=== PATIENT | female | born 1995 ===

== ENCOUNTER 2024-07-26 14:32 | Outpatient (CLI) | payer OTHER | END 2024-07-26 14:33 | disposition home or self-care (01) | LOC: PRENATAL 14:32 | PROVIDERS: ATTEND Obstetrics & Gynecology Maternal & Fetal Medicine | DX: O36.8199 Decreased fetal movements, unspecified trimester, other fetus (principal); Z36.82 Encounter for antenatal screening for nuchal translucency; O99.280 Endocrine, nutritional and metabolic diseases complicating pregnancy, unspecified trimester; Z14.8 Genetic carrier of other disease; Z3A.13 13 weeks gestation of pregnancy ==

== ENCOUNTER → 2024-09-15 | Outpatient (CLI) | payer OTHER | END | disposition home or self-care (01) | LOC: PRENATAL 08:33 | PROVIDERS: ATTEND Obstetrics & Gynecology Maternal & Fetal Medicine | DX: O44.00 Complete placenta previa NOS or without hemorrhage, unspecified trimester (principal); O99.280 Endocrine, nutritional and metabolic diseases complicating pregnancy, unspecified trimester; Z3A.20 20 weeks gestation of pregnancy ==

== ENCOUNTER 2024-11-11 14:23 | Outpatient (CLI) | payer OTHER | END 2024-11-11 14:24 | disposition home or self-care (01) | LOC: PRENATAL 14:23 | PROVIDERS: ATTEND Obstetrics & Gynecology Maternal & Fetal Medicine | DX: O26.849 Uterine size-date discrepancy, unspecified trimester (principal); O44.00 Complete placenta previa NOS or without hemorrhage, unspecified trimester; O99.280 Endocrine, nutritional and metabolic diseases complicating pregnancy, unspecified trimester; Z3A.29 29 weeks gestation of pregnancy ==

== ENCOUNTER → 2024-12-21 09:20 | Outpatient (CLI) | payer OTHER | END | disposition home or self-care (01) | LOC: PRENATAL 09:20 | PROVIDERS: ATTEND Obstetrics & Gynecology Maternal & Fetal Medicine | DX: O26.849 Uterine size-date discrepancy, unspecified trimester (principal); O36.8199 Decreased fetal movements, unspecified trimester, other fetus; O99.280 Endocrine, nutritional and metabolic diseases complicating pregnancy, unspecified trimester; Z3A.34 34 weeks gestation of pregnancy ==

== ENCOUNTER 2025-01-18 13:04 | Inpatient (IN) | payer OTHER ==
[~2025-01-18] VITALS: Ht 162.6 cm; Wt 79.4 kg
[2025-01-18 13:51] LABS: BASO % 0.2 % (0.1-1.2); EOS # 0.05 (0.04-0.54); EOS % 0.8 % (0.7-7.0); LYMPH # 1.27 (1.18-3.74); LYMPH % 19.7 % (19.3-53.1); MEAN PLATELET VOLUME 14.20 fl (9.4-12.4); MONO # 0.50 (0.24-0.82); MONO % 7.8 % (4.7-12.5); NEUT # 4.59 (1.56-6.13); NEUT % 71.2 % (34.0-71.1); RED CELL DISTRIBUTION WIDTH 13.8 % (11.6-14.4)
[2025-01-18] MEDS ORDERED: SYNTHROID50 MCG PO (13:54)
[2025-01-18] MEDS ORDERED: PRENATABS RX T1 EACH PO (13:55)
[2025-01-18 13:59] LABS: URINE APPEARANCE Clear; URINE BILIRRUBIN Negative (NEGATIVE); URINE BLOOD Negative; URINE COLOR Dark Yellow; URINE GLUCOSE Negative (NEGATIVE); URINE KETONE Trace (NEGATIVE); URINE LEUKOCYTE Negative; URINE NITRATE Negative; URINE PROTEIN Trace (NEGATIVE); URINE UROBILINOGEN 1.0 E.U./dl
[2025-01-18 14:03] LABS: URINE BACTERIA 314.3 uL (0.0-1933); URINE EPITHELIAL CELLS 15.3 uL (0.0-38.8); URINE WBC 4.7 uL (0.0-23.2)
[2025-01-18 14:08] LABS: URINE CAST 0.58 uL (0.0-1.40); URINE RBC 1.7 uL (0.0-20.8)
[2025-01-18 14:15] LABS: INR 0.94
[2025-01-24 07:48] VITALS: BP 11/72; BP 112/72
[2025-01-24] MEDS ORDERED: VIT D2-K1 20-1259 ML (08:35)
[2025-01-24] MEDS ORDERED: RINGERS SOLUTION,LACTATED 1,000 ML IV SCH (08:45)
[2025-01-24] MEDS ORDERED: CEFAZOLIN SODIUM 1,000 MG VIAL IV SCH (08:45)
[2025-01-24] MEDS ORDERED: ERYTHROMYCIN BASE OPHT 1GM EACH TUBE OP ONE (09:28)
[2025-01-24] MEDS ORDERED: OXYTOCIN 10 UNITS/ML VIAL ONE (09:28)
[2025-01-24] MEDS ORDERED: MORPHINE SULFATE 4 MG/ML CARTRIDGE IV SCH (13:00)
[2025-01-24 15:06] VITALS: BP 122/71
[2025-01-24 16:52] LABS: BASO % 0.2 % (0.1-1.2); EOS # 0.04 (0.04-0.54); EOS % 0.3 % (0.7-7.0); LYMPH # 1.34 (1.18-3.74); LYMPH % 11.5 % (19.3-53.1); MEAN PLATELET VOLUME 13.80 fl (9.4-12.4); MONO # 0.84 (0.24-0.82); MONO % 7.2 % (4.7-12.5); NEUT # 9.39 (1.56-6.13); NEUT % 80.5 % (34.0-71.1); RED CELL DISTRIBUTION WIDTH 13.6 % (11.6-14.4)
[2025-01-24] MEDS ORDERED: KETOROLAC TROMETHAMINE 60 MG VIAL IM NR (17:00)
[2025-01-25 00:01] VITALS: BP 112/71
[2025-01-25 04:30] VITALS: BP 106/63
[2025-01-25] MEDS ORDERED: OxyCODONE HCL 5 MG TABLET (ROXICODONE) PO SCH (05:00)
[2025-01-25] MEDS ORDERED: PNV,CALCIUM 72/IRON/FOLIC ACID 1 TAB TABLET PO SCH (08:00)
[2025-01-25] MEDS ORDERED: SIMETHICONE 125 MG CAPSULE PO SCH (08:00)
[2025-01-25] MEDS ORDERED: DOCUSATE SODIUM 100MG CAP PO SCH (08:00)
[2025-01-25 08:23] VITALS: BP 107/64
[2025-01-25 17:02] VITALS: BP 112/73
[2025-01-26 01:02] VITALS: BP 118/72
[2025-01-26 03:00] VITALS: BP 115/71
[2025-01-26 08:00] VITALS: BP 105/61
[2025-01-26 16:00] VITALS: BP 126/82
[2025-01-27] VITALS: BP 133/83
[2025-01-27 03:00] VITALS: BP 122/81
[2025-01-27 08:00] VITALS: BP 115/75
== END 2025-01-27 14:10 | disposition home or self-care (01) | DRG 787 ==
LOC: O/R 01-24 08:01 → LDR 01-24 08:01 → O/R 01-24 10:43 → OB/GYN 01-24 13:11
PROVIDERS: ADMIT Obstetrics & Gynecology; ATTEND Obstetrics & Gynecology
PROC: 4A1HXCZ Monitoring of Products of Conception, Cardiac Rate, External Approach (ICD-10-PCS; 2025-01-24)
PROC: 10D00Z1 Extraction of Products of Conception, Low, Open Approach (ICD-10-PCS; principal; 2025-01-24 10:30)
DX: O82 Encounter for cesarean delivery without indication (principal); O98.32 Other infections with a predominantly sexual mode of transmission complicating childbirth; A60.09 Herpesviral infection of other urogenital tract; Z3A.38 38 weeks gestation of pregnancy; Z37.0 Single live birth